=== PATIENT | male | born 1980 | race Caucasian/White ===

== ENCOUNTER → 2018-01-15 | Outpatient (CLI) | payer OTHER ==
--- NOTE | 2018-01-15 10:04 | RAD ---
Lumbar spine, 3 views, 01/15/2018: History: Low back pain There are bilateral pedicle screws in place at L5 and S1 attached to longitudinally oriented posterior fixation rods. There are 2 additional screws in the upper sacrum. A partially radiopaque disc spacer present at L5-S1. There has been a lower lumbar laminectomy. No acute fracture or dislocation is identified. The lumbar disc spaces are well-maintained. The paraspinous soft tissues are unremarkable. IMPRESSION: 1. Postsurgical changes with spinal effusion, instrumentation and laminectomy at L5-S1. 2. No acute bony abnormality is detected.
== END | disposition home or self-care (01) ==
LOC: DXRAD 09:33
PROVIDERS: ATTEND Internal Medicine Infectious Disease
DX: M54.5 Low back pain (principal); Z98.890 Other specified postprocedural states
CPT/HCPCS: 72100